=== PATIENT | male | born 1980 | race Caucasian/White ===

== ENCOUNTER 2022-01-20 20:30 | Emergency (ER) | payer SELFPAY ==
[2022-01-20 22:33] VITALS: BP 151/90; PULSE 99; RESP 18; TEMP 36.8; O2SAT 98; BMI 21.8
--- NOTE | 2022-01-20 22:41 | XRR_ITS ---
PROCEDURE INFORMATION: Exam: XR Right Wrist Exam date and time: 01/20/2022 11:11 PM Age: 41 years old Clinical indication: Injury or trauma; Fall; Laceration; Wrist; Right; Additional info: Fall injury with right wrist pain and laceration. TECHNIQUE: Imaging protocol: Radiologic exam of the Right wrist. Views: 3 or more views. COMPARISON: No relevant prior studies available. FINDINGS: Bones/joints: Normal. Soft tissues: Normal. XR/XR wrist RT min 3V* [id number] IMPRESSION: No acute findings.
[2022-01-20 23:43] VITALS: BP 155/97; PULSE 92; RESP 18; TEMP 36.8; O2SAT 98
--- NOTE | 2022-01-21 00:08 | W.ED.WOUNDLC ---
HPI - Wound/Laceration General: Chief Complaint: Wound/Laceration Stated Complaint: laceration of right wrist Time Seen by Provider: 01/20/22 23:24 History of Present Illness: Patient is a 41-year-old male comes to the ED with a laceration to right wrist. Patient says he fell and a ceramic bowl broke as well. He fell down and his right wrist hit the ground and was cut on a piece of the broken ceramic bowl. Endorses pain in his right wrist that he rates a 10 out of 10. Patient is not up-to-date on his tetanus. Associated symptoms: Denies chills, fever(s), nausea or vomiting Review of Systems Const: Denies: fever(s), chills or fatigue Eyes: Denies: change in vision or eye discomfort ENMT: Denies: throat pain, odynophagia, nasal discharge or nasal congestion Card: Denies: chest pain, palpitations, edema, swelling of feet/ankles, dyspnea on exertion or orthopnea Resp: Denies: dyspnea, productive cough or non-productive cough GI: Denies: abdominal pain, nausea, vomiting, diarrhea, constipation or hematochezia : Denies: flank pain, difficulty urinating, dysuria or hematuria Musc: Reports: extremity pain (Right wrist pain); Denies: neck pain, back pain or extremity swelling Skin/Breast: Reports: new lesions (Laceration right wrist); Denies: rash Neuro: Denies: headache(s), numbness in extremities or weakness in extremities PFS ED PFSH: Medical History No pertinent family history Surgical History No pertinent past surgical history Physical Exam Const: COMMON NORMALS: no acute distress, patient oriented x3 and alert GENERAL APPEARANCE: cooperative and comfortable HENMT: COMMON NORMALS: normocephalic HEAD & SCALP: normocephalic MOUTH: Normal oral and palatal mucosa present THROAT: posterior oropharynx normal and uvula midline Neck/C-Spine: COMMON NORMALS: supple GENERAL: Yes normal visual inspection Resp: COMMON NORMALS: normal respiratory effort, No retractions, No use of accessory muscles and clear to auscultation bilaterally AUSCULTATION: clear to auscultation bilaterally Cardio: COMMON NORMALS: regular rate, regular rhythm, S1 normal heart sound present, S2 normal heart sound present, No gallops present (Cardio), No clicks present (Cardio), No murmurs present (Cardio) and Peripheral pulses 2+ throughout RATE: regular rate RHYTHM: regular rhythm HEART SOUNDS: S1 normal heart sound present and S2 normal heart sound present PERIPHERAL PULSES: Peripheral pulses 2+ throughout GI: COMMON NORMALS: Normal to inspection, nondistended, normoactive bowel sounds present, Soft to palpation, non-tender and no masses PALPATION: Yes Soft to palpation : COMMON NORMALS: Yes no CVA tenderness BLADDER/KIDNEY EXAM: Yes no CVA tenderness Back/Pelvis: COMMON NORMALS: no CVA tenderness Extremity: NARRATIVE EXTREMITY EXAM: Dorsal aspect of right wrist?superficial linear 2 cm laceration. No active bleeding and no foreign body seen. Patient has full range of motion in wrist and fingers and hands. Wrist is tender to palpation and endorses pain with range of motion. Neurovascular tact distally. GENERAL: Yes normal exam except as noted Neuro: COMMON NORMALS: patient oriented x3 and moves all extremities SENSORIUM/ORIENTATION: Yes alert Skin: GENERAL SKIN EXAM: dry skin Procedures Laceration Laceration 1: Site: upper extremity (dorsal wrist) Side (If applicable): right Size (cm): 2 Description: linear and clean Depth: simple, single layer Local Anesthetic: lidocaine 2% Amount of anesthesia used (mL): 3 Pre-repair: irrigated extensively (Irrigated extensively normal saline and beta iodine wash.) Skin layer closed with: nylon Size (cm): 3-0 Number of sutures: 6 Technique: simple, interrupted Course Vital Signs: Vital signs: Vital Signs Temperature 98.3 F 01/20/22 23:43 Pulse Rate 89 01/21/22 02:00 Respiratory Rate 16 01/21/22 02:00 Blood Pressure 152/78 01/21/22 02:00 Pulse Oximetry 98 01/21/22 02:00 MDM - Wound/Laceration Medical Decision Making Patient is a 41-year-old male comes to the ED with right wrist pain and wrist laceration after he fell and broke and ceramic bowl because laceration during fall. Patient has a 2 cm linear laceration on dorsal aspect of right wrist. He has some right wrist tenderness palpation and some pain with range of motion. Neurovascular tact and no concern for any tendon lacerations. Patient was given updated tetanus here in the ED. Lidocaine 2% was used as local and laceration site was irrigated extensively normal saline and beta iodine wash. 6 sutures were then placed to close up laceration (see procedure notes for details). X-ray of right wrist showed no acute fractures or findings. Patient diagnosed with laceration of wrist and acute wrist pain. Patient was discharged home and Velcro wrist splint and on a prophylactic prescription for cephalexin. He was told to follow-up with his PCP in the next 7 to 10 days for reevaluation of sutures removed. He was instructed on how to care for laceration site. Lab Data Radiology Impressions Wrist X-Ray 01/20/22 22:41 IMPRESSION: No acute findings. Discharge Plan Discharge Patient Disposition: Home Clinical Impression: Laceration of wrist without complication Qualifiers: Encounter type: initial encounter Laterality: right Qualified Code(s): S61.511A - Laceration without foreign body of right wrist, initial encounter Wrist pain, acute Qualifiers: Laterality: right Qualified Code(s): M25.531 - Pain in right wrist Condition: Stable Prescriptions: New cephalexin 500 mg capsule 500 mg PO Q6H 4 Days Qty: 16 0RF Discharge Orders: Discharge ED (Routine); Ordered 01/21/22 Ordered By: Sai Andrade Referrals: Juliet Hart APN [Primary Care Provider] - Discharge Diet: Regular Discharge Activity: Increase activity as tolerated Patient Instructions: Wrist Injury (ED), Laceration (DC), Opioid Safety Activity Restrictions/Additional Instructions: Take full course of antibiotics as prescribed. Keep laceration site clean and dry for the next 24 hours. clean with soap and waterand re-bandage daily. You can apply triple antibiotic ointment on laceration daily to help with healing. Watch for signs of infection such as redness, warmth, increased tenderness and puslike drainage. If you see the signs of infection return to the ED, urgent care or PCP for reevaluation. call your PCP to schedule a follow-up appointment for reevaluation and suture removal in about 10 days. Continue taking all home meds. Follow discharge plans as discussed. You can return to the ED if symptoms worsen. Coding Level of Care Code ED Microstrategy Architect for Jennifer Watson Exam Comprehensive
[2022-01-21 00:27] VITALS: RESP 16
[2022-01-21] MEDS: morphine 4 mg/mL SDV 1 mL IM (00:27)
[2022-01-21] MEDS: tetanus-dipt-pertussis 0.5 mL SDV IM (00:27)
[2022-01-21] MEDS: HYDROcodone-acetaminophen 7.5-325 mg Tablet 1 TAB PO ×2 (01:58)
[2022-01-21] MEDS: cephALEXin 500 mg Capsule PO (01:58)
[2022-01-21 02:00] VITALS: BP 152/78; PULSE 89; RESP 16; O2SAT 98
[2022-01-21] MEDS: neomycin-poly-bacitracin oint 0.9 gm Pkt 1 APPLIC TOPICAL (02:03)
== END 2022-01-21 02:02 | disposition home or self-care (01) ==
PROVIDERS: Emergency Provider Physician Assistant; PCP Nurse Practitioner Family
DX: S61.511A Laceration without foreign body of right wrist, initial encounter (principal); M25.531 Pain in right wrist; W01.110A Fall on same level from slipping, tripping and stumbling with subsequent striking against sharp glass, initial encounter; Z23 Encounter for immunization
CPT/HCPCS: 12001; 73110; 90471; 90715; 96372; 99284; J2270

== ENCOUNTER 2022-03-14 14:26 | Emergency (ER) | payer SELFPAY ==
[2022-03-14 14:33] VITALS: BP 160/102; PULSE 88; RESP 18; TEMP 36.6; O2SAT 99; BMI 21.1
--- NOTE | 2022-03-14 14:53 | ED_ITS ---
HPI - General Adult General: Chief complaint: Alcohol Stated complaint: NAUSEA Time Seen by Provider: 03/14/22 14:49 History of Present Illness: Patient is a 41-year-old male with history chronic alcohol dependence presenting to the emergency room with concerns of acute abdominal pain could not diarrhea after drinking alcohol today. Patient tells me that he was upset with his girlfriend and drained 1 bottle of rum from 11 to 2 PM. Since then, patient has had abdominal pain and diarrhea. Patient tells me he wants to quit alcohol. Patient tells me last drink prior to this was 3 days ago. Patient is trying to quit alcohol currently. Patient denies any suicidal ideation or homicidal ideation. Patient is AAOx3, answering all questions appropriately. Patient denies any melena/hematochezia. Denies any cough, runny nose, or sore throat. Onset:11am Duration:ongoing Location:home Severity:mild Associated symptoms: Deny chest pain, dyspnea, nausea, rash, palpitations or vomiting Review of Systems Const: Denies: fever(s) or chills Eyes: Denies: change in vision ENMT: Denies: mouth pain Card: Denies: chest pain or palpitations Resp: Denies: dyspnea or non-productive cough GI: Reports: abdominal pain (+midepigastric abd pain) and diarrhea; Denies: nausea or vomiting : Denies: dysuria Musc: Denies: extremity pain Skin/Breast: Denies: rash or new lesions Neuro: Denies: weakness in extremities Psych: Reports: other (Normal mood) Nikita/Lymph: Denies: easy bruising PFS ED PFSH: Medical History Alcohol dependence No pertinent family history Surgical History No pertinent past surgical history Social History Smoking and tobacco status: former smoker Alcohol intake: current Substance/Drug Use: never Physical Exam Const: COMMON NORMALS: alert HENMT: COMMON NORMALS: atraumatic HEAD & SCALP: atraumatic MOUTH: moist mucous membranes not abnormal Eye: COMMON NORMALS: EOMs intact bilaterally and conjunctivae normal CON JUNCTIVA: Yes conjunctivae normal Neck/C-Spine: COMMON NORMALS: full ROM and supple Resp: COMMON NORMALS: normal respiratory effort and clear to auscultation bilaterally AUSCULTATION: clear to auscultation bilaterally Cardio: COMMON NORMALS: regular rate RATE: regular rate GI: COMMON NORMALS: Soft to palpation and non-tender PALPATION: Yes Soft to palpation OTHER: No focal TTP. NO guarding rebound, guarding, rigidity. No CVA tenderness to percussion. Neg Dodson/Neg McBurney's point tenderness, no suprabupic tenderness to palpation. Extremity: COMMON NORMALS: full ROM Neuro: SENSORIUM/ORIENTATION: Yes alert MOTOR EXAM: No Abnormal motor strength present and Other motor observations present (no focal motor deficits) Psych: COMMON NORMALS: speech normal SPEECH: Yes normal speech MOOD & AFFECT: Yes euthymic mood Course Vital Signs: Vital signs: Vital Signs Temperature 97.9 F 03/14/22 14:33 Pulse Rate 89 03/14/22 16:30 Respiratory Rate 16 03/14/22 17:00 Blood Pressure 147/107 03/14/22 17:00 Pulse Oximetry 97 03/14/22 17:00 Oxygen Delivery Me thod 03/14/22 15:38 MDM - General Adult Medical Decision Making 41-year-old male with history alcohol dependence presenting to the emergency room after drinking alcohol with concerns of midepigastric Charlie pain and diarrhea. On exam, patient is hemodynamically stable. He has no guarding or rebound tenderness. On lab work-up, patient is has unremarkable labs. Patient is able to tolerate p.o. in the emergency room. Patient received 1 L fluid reports feeling symptomatically proved. Patient continues to be AOx3 maintaining without any issues. Present time, given, no focal findings of abdominal tenderness, fever or leukocytosis, do not suspect any acute intra-abdominal pathologies including SBO, biliary pathology, appendicitis, diverticulitis, or other emergent condition requiring surgery. In addition, patient has no appropriate risk factor for ACS at this time. Do not suspect this is ACS or unstable angina. Rx tylenol PRN abd pain, maalox/pepcid PRN dyspepsia, and zofran PRN nausea/vomiting Disposition: Discharge. Patient counseled regarding diagnostic impression, treatment plan. Patient given ED strict return precautions to return for co ntinuation, worsening, or development of new symptoms. Instructed to f/u w/ PCP regarding symptoms today. Patient verbalized understanding. Lab Data : 03/14/22 15:12 03/14/22 15:12 Laboratory Results WBC 5.7 10^3/uL (4.0-10.0) 03/14/22 15:12 RBC 4.82 10^6/uL (4.1-5.3) 03/14/22 15:12 Hgb 14.8 g/dL (11.7-16.6) 03/14/22 15:12 Hct 44.2 % (42.0-52.0) 03/14/22 15:12 MCV 91.7 fl (80-94) 03/14/22 15:12 MCH 30.7 pg (28.0-34.0) 03/14/22 15:12 MCHC 33.5 g/dL (30.0-36.0) 03/14/22 15:12 RDW 12.9 % (12.1-15.1) 03/14/22 15:12 Plt Count 211 10^3/cmm (130-400) 03/14/22 15:12 MPV 10.7 fL (7.4-10.4) H 03/14/22 15:12 Neut % (Auto) 84.1 % 03/14/22 15:12 Lymph % (Auto) 9.5 % 03/14/22 15:12 [place] % (Auto) 5.4 % 03/14/22 15:12 Eos % (Auto) 0.2 % 03/14/22 15:12 Baso % (Auto) 0.4 % 03/14/22 15:12 Neut # (Auto) 4.81 10^3/uL (1.8-7.7) 03/14/22 15:12 Lymph # (Auto) 0.5 10^3/uL (0.8-4.8) L 03/14/22 15:12 [place] # (Auto) 0.3 10^3/uL (0.2-0.9) 03/14/22 15:12 Eos # (Auto) 0.0 10^3/uL (0.0-0.8) 03/14/22 15:12 Baso # (Auto) 0.0 10^3/uL (0.0-0.1) 03/14/22 15:12 Nucleated RBC % (auto) 0 % 03/14/22 15:12 Nucleated RBCs # 0.0 /100WBC 03/14/22 15:12 Sodium 140 mmol/L (136-145) 03/14/22 15:12 Potassium 4.5 mmol/L (3.5-5.1) 03/14/22 15:12 Chloride 105 mmol/L (98-107) 03/14/22 15:12 Carbon Dioxide 26 mmol/L (22-29) 03/14/22 15:12 Anion Gap 13.5 (5-19) 03/14/22 15:12 BUN 6 mg/dL (6-20) 03/14/22 15:12 Creatinine 0.8 mg/dL (0.7-1.2) 03/14/22 15:12 GFR Calculation 107.6 mL/min (90-130) 03/14/22 15:12 Glucose 102 mg/dL (65-115) 03/14/22 15:12 Calculated Osmolality 288 mOsm/kg (285-295) 03/14/22 15:12 Calcium 8.1 mg/dL (8.5-10.5) L 03/14/22 15:12 Total Bilirubin 0.3 mg/dL (0.15-1.2) 03/14/22 15:12 AST 14 U/L (0-40) 03/14/22 15:12 ALT 35 U/L (0-41) 03/14/22 15:12 Alkaline Phosphatase 81 U/L (40-130) 03/14/22 15:12 Total Protein 6.3 g/dL (6.6-8.7) L 03/14/22 15:12 Albumin 3.9 g/dL (3.5-5.2) 03/14/22 15:12 Globulin 2.4 g/dL (1.3-4.6) 03/14/22 15:12 Lipase 29 U/L (13-60) 03/14/22 15:12 Urine Color Yellow (Yellow) 03/14/22 15:07 Urine Appearance Clear (CLEAR) 03/14/22 15:07 Urine pH 7 (5-7) 03/14/22 15:07 Ur Specific [place] 1.010 (1.005-1.030) 03/14/22 15:07 Urine Protein Neg (Negative) 03/14/22 15:07 Urine Glucose (UA) Norm (Normal) 03/14/22 15:07 Urine Ketones Negative (Negative) 03/14/22 15:07 Urine Blood Neg (Negative) 03/14/22 15:07 Urine Nitrate Negative (Negative) 03/14/22 15:07 Urine Bilirubin Neg (Negative) 03/14/22 15:07 Urine Urobilinogen Norm mg/dL (Negative) 03/14/22 15:07 Ur Leukocyte Esterase Negative (Negative) 03/14/22 15:07 Discharge Plan Discharge Patient Disposition: Home Clinical Impression: Abdominal pain, Alcohol dependence Condition: Stable Prescriptions: New amlodipine 5 mg tablet 5 mg PO DAILY 30 Days Qty: 30 0RF No Action Tylenol Ex Str Rapid Release 500 mg Tablet 1,000 mg PO Q6H PRN (Reason: Pain) Benadryl Allergy 25 mg Tablet 25 mg PO TID PRN (Reason: Itching) Discharge Orders: Discharge ED (Routine); Ordered 03/14/22 Ordered By: Sofia Florez Referrals: Juliet Hart APN [Primary Care Provider] - Discharge Diet: Advance as tolerated Discharge Activity: Increase activity as tolerated Patient Instructions: Abdominal Pain (ED) Activity Restrictions/Additional Instructions: Please come back if you have any worsening abdominal pain, fever or chills, nausea or vomiting, diarrhea, blood in the stool, inability hold down liquid or solids, or any new concerning complaints. You need to follow-up with your primary care provider for further adjustment of your blood pressure. Your blood pressure puts you at risk for developing strokes and heart attack. Therefore it is very important for you to follow-up with this number to see if the numbers improve gradually. Because blood pressure adjustment is a gradual process, were not able to change it in 1 visit. Therefore please log your blood pressure and follow-up with your primary care provider in the next 72 hours for further adjustment of your blood pressures. Coding Level of Care Code ED Motor And Generator Assembler for Jennifer Fwd Exam Comprehensive
[2022-03-14 15:21] LABS: Add Urine Microscopic? NO; Charge for UA Resulting for Rev
[2022-03-14 15:25] LABS: Bilirubin Urine Neg (Negative); Blood Urine Neg (Negative); Glucose Urine UA Norm (Normal); Ketones Urine Negative (Negative); Leukocyte Esterase Urine Negative (Negative); Nitrate Urine Negative (Negative); Protein Urine Neg (Negative); Urine Appearance Clear (CLEAR); Urine Color Yellow (Yellow); Urobilinogen Urine Norm (Negative); pH Urine 7 (5-7)
[2022-03-14 15:26] LABS: Basophils % 0.4 %; Eosinophils % 0.2 %; Hematocrit 44.2 % (42.0-52.0); Hemoglobin 14.8 g/dL (11.7-16.6); Lymphocytes # 0.5 10^3/uL (0.8-4.8); Lymphocytes % 9.5 %; Mean Corpuscular HGB Conc 33.5 g/dL (30.0-36.0); Mean Corpuscular Hemoglobin 30.7 pg (28.0-34.0); Mean Corpuscular Volume 91.7 fl (80-94); Mean Platelet Volume 10.7 fL (7.4-10.4); Monocytes # 0.3 10^3/uL (0.2-0.9); Monocytes % 5.4 %; Neutrophils # 4.81 10^3/uL (1.8-7.7); Neutrophils % 84.1 %; Nucleated Red Blood Cells % 0 %; Platelet Count 211 10^3/cmm (130-400); Red Blood Count 4.82 10^6/uL (4.1-5.3); Red Cell Distribution Width 12.9 % (12.1-15.1); White Blood Count 5.7 10^3/uL (4.0-10.0)
[2022-03-14] MEDS: sodium chloride 0.9% 1,000 ML 999 ML IV (15:29)
[2022-03-14 15:38] VITALS: BP 154/102; PULSE 88; O2SAT 93
[2022-03-14 15:51] LABS: Alanine Aminotransferase 35 U/L (0-41); Albumin Level 3.9 g/dL (3.5-5.2); Alkaline Phosphatase 81 U/L (40-130); Anion Gap 13.5 (5-19); Aspartate Amino Transferase 14 U/L (0-40); Blood Urea Nitrogen 6 mg/dL (6-20); Calcium 8.1 mg/dL (8.5-10.5); Carbon Dioxide 26 mmol/L (22-29); Chloride 105 mmol/L (98-107); Globulin 2.4 g/dL (1.3-4.6); Glomerular Filtration Rate 107.6 mL/min (90-130); Glucose 102 mg/dL (65-115); Lipase 29 U/L (13-60); Osmolality Calculated 288 mOsm/kg (285-295); Potassium 4.5 mmol/L (3.5-5.1); Sodium 140 mmol/L (136-145); Total Bilirubin 0.3 mg/dL (0.15-1.2); Total Protein 6.3 g/dL (6.6-8.7)
[2022-03-14 16:00] VITALS: BP 144/93; PULSE 71; O2SAT 96
[2022-03-14 16:30] VITALS: PULSE 89; O2SAT 100
--- NOTE | 2022-03-14 16:59 | PC.NURSE ---
pt resting in bed, given saltine crackers, sprite, and juice
[2022-03-14 17:00] VITALS: BP 147/107; RESP 16; O2SAT 97
== END 2022-03-14 17:27 | disposition home or self-care (01) ==
PROVIDERS: Emergency Provider Emergency Medicine; PCP Nurse Practitioner Family
DX: R10.9 Unspecified abdominal pain (principal); F10.20 Alcohol dependence, uncomplicated; Z87.891 Personal history of nicotine dependence
CPT/HCPCS: 36415; 80053; 81003; 83690; 85025; 99283; J7030

== ENCOUNTER 2022-05-24 19:01 | Emergency (ER) | payer SELFPAY ==
[2022-05-24 19:21] VITALS: BP 160/86; PULSE 99; RESP 15; TEMP 36.8; O2SAT 98; BMI 19.8
--- NOTE | 2022-05-24 20:34 | ED_ITS ---
HPI - Chest Pain General: Chief Complaint: Chest Pain Stated Complaint: Chest pain Time Seen by Provider: 05/24/22 20:34 History of Present Illness: Mr. Justice is a 41-year-old gentleman presenting to the emergency department due to left chest pain. Started with heavy exertion and has now been intermittent with sharp feeling and feeling like his rib is popping. Worse with movement and palpation. Moderate in intensity. Course has persisted. No other specific changes in health, exacerbating, or alleviating factors identified. Onset (ago): day(s) Timing of current episode: episodic Prior episodes: No Onset: during exertion Pain location: left chest Pain radiation: none Associated symptoms: Reports no associated symptoms Review of Systems General: Reports: 10 or more systems reviewed and unremarkable except in HPI and below PFSH ED PFSH: Medical History Alcohol dependence No pertinent family history Surgical History No pertinent past surgical history Social History Smoking and tobacco status: former smoker Alcohol intake: current Physical Exam Const: COMMON NORMALS: alert GENERAL APPEARANCE: cooperative and well developed HENMT: COMMON NORMALS: normocephalic and atraumatic HEAD & SCALP: normocephalic and atraumatic THROAT: posterior oropharynx normal Eye: COMMON NORMALS: conjunctivae normal CONJUNCTIVA: Yes conjunctivae normal SCLERA: sclerae normal Neck/C-Spine: COMMON NORMALS: supple GENERAL: Yes trachea midline Chest: OTHER: Left anterior medial point tenderness palpation without overlying skin lesions or obvious contour abnormality. Resp: COMMON NORMALS: normal respiratory effort and clear to auscultation bilaterally EFFORT & INSPECTION: Yes able to speak in complete sentences A USCULTATION: clear to auscultation bilaterally Cardio: COMMON NORMALS: regular rate and regular rhythm RATE: regular rate RHYTHM: regular rhythm GI: COMMON NORMALS: Soft to palpation PALPATION: Yes Soft to palpation and No Tenderness to palpation present (GI) Extremity: GENERAL: Yes normal exam except as noted and No edema Neuro: COMMON NORMALS: moves all extremities SENSORIUM/ORIENTATION: Yes alert and No Orientation impaired Psych: COMMON NORMALS: mental status grossly normal and Normal thought process present MOOD & AFFECT: Yes anxious THOUGHT PROCESS: Normal thought process present Course Vital Signs: Vital signs: Vital Signs Temperature 98.3 F 05/24/22 19:21 Pulse Rate 97 05/24/22 22:49 Respiratory Rate 19 H 05/24/22 22:49 Blood Pressure 150/98 05/24/22 22:49 Pulse Oximetry 97 05/24/22 22:49 Oxygen Delivery Me thod 05/24/22 19:21 MDM - Chest Pain Medical Decision Making 41-year-old gentleman presenting with reproducible chest pain on exam. Patient is low risk by heart score. EKG notable for sinus rhythm. Hematologic and metabolic panel essentially unremarkable. Initial troponin was greater than 6 hours of symptoms is negative. Most likely etiology of pain is associated chest wall pain with possible transient dislocation of rib. The results of ED evaluation were discussed with the patient including prescriptions and/or symptomatic cares (if applicable) including appropriate and responsible use, followup plan, and return precautions. The patient verbalized understanding and felt safe for discharge. Medical Records I reviewed the patient's medical records. Lab Data I reviewed the patient's lab results. : 05/24/22 20:51 05/24/22 20:51 Radiology Impressions Chest X-Ray 05/24/22 20:57 IMPRESSION: No acute findings. Laboratory Results WBC 8.1 10^3/uL (4.0-10.0) 05/24/22 20:51 RBC 4.65 10^6/uL (4.1-5.3) 05/24/22 20:51 Hgb 14.3 g/dL (11.7-16.6) 05/24/22 20:51 Hct 41.1 % (42.0-52.0) L 05/24/22 20:51 MCV 88.4 fl (80-94) 05/24/22 20:51 MCH 30.8 pg (28.0-34.0) 05/24/22 20:51 MCHC 34.8 g/dL (30.0-36.0) 05/24/22 20:51 RDW 12.3 % (12.1-15.1) 05/24/22 20:51 Plt Count 205 10^3/cmm (130-400) 05/24/22 20:51 MPV 11.2 fL (7.4-10.4) H 05/24/22 20:51 Neut % (Auto) 66.8 % 05/24/22 20:51 Lymph % (Auto) 20.0 % 05/24/22 20:51 [place] % (Auto) 9.0 % 05/24/22 20:51 Eos % (Auto) 3.6 % 05/24/22 20:51 Baso % (Auto) 0.4 % 05/24/22 20:51 Neut # (Auto) 5.40 10^3/uL (1.8-7.7) 05/24/22 20:51 Lymph # (Auto) 1.6 10^3/uL (0.8-4.8) 05/24/22 20:51 [place] # (Auto) 0.7 10^3/uL (0.2-0.9) 05/24/22 20:51 Eos # (Auto) 0.3 10^3/uL (0.0-0.8) 05/24/22 20:51 Baso # (Auto) 0.0 10^3/uL (0.0-0.1) 05/24/22 20:51 Nucleated RBC % (auto) 0 % 05/24/22 20:51 Nucleated RBCs # 0.0 /100WBC 05/24/22 20:51 Sodium 138 mmol/L (136-145) 05/24/22 20:51 Potassium 3.9 mmol/L (3.5-5.1) 05/24/22 20:51 Chloride 100 mmol/L (98-107) 05/24/22 20:51 Carbon Dioxide 27 mmol/L (22-29) 05/24/22 20:51 Anion Gap 14.9 (5-19) 05/24/22 20:51 BUN 10 mg/dL (6-20) 05/24/22 20:51 Creatinine 1.1 mg/dL (0.7-1.2) 05/24/22 20:51 GFR Calculation 74.5 mL/min (90-130) L 05/24/22 20:51 Glucose 89 mg/dL (65-115) 05/24/22 20:51 Calculated Osmolality 285 mOsm/kg (285-295) 05/24/22 20:51 Calcium 9.3 mg/dL (8.5-10.5) 05/24/22 20:51 Total Bilirubin 0.3 mg/dL (0.15-1.2) 05/24/22 20:51 AST 16 U/L (0-40) 05/24/22 20:51 ALT 20 U/L (0-41) 05/24/22 20:51 Alkaline Phosphatase 85 U/L (40-130) 05/24/22 20:51 Troponin T Baseline 6 ng/L (0-15) 05/24/22 20:51 Total Protein 6.8 g/dL (6.6-8.7) 05/24/22 20:51 Albumin 4.3 g/dL (3.5-5.2) 05/24/22 20:51 Globulin 2.5 g/dL (1.3-4.6) 05/24/22 20:51 Lipase 51 U/L (13-60) 05/24/22 20:51 Discharge Plan Discharge Patient Disposition: Home Clinical Impression: Chest pain, Musculoskeletal chest pain Condition: Stable Prescriptions: New lisinopril 10 mg tablet 10 mg PO DAILY Qty: 30 1RF No Action Tylenol Ex Str Rapid Release 500 mg Tablet 1,000 mg PO Q6H PRN (Reason: Pain) Benadryl Allergy 25 mg Tablet 25 mg PO TID PRN (Reason: Itching) Discharge Orders: Discharge ED (Routine); Ordered 05/24/22 Ordered By: Serjio Simon Referrals: Juliet Hart APN [Primary Care Provider] - Discharge Diet: Usual diet Discharge Activity: Increase activity as tolerated Patient Instructions: Chest Wall Pain (ED), Pain Management Activity Restrictions/Additional Instructions: Thank you for visiting the emergency department. You were seen and evaluated for chest pain. The most likely cause of your pain is chest wall pain possibly related to transiently dislocated rib. The treatment for this is supportive and symptoms should improve within the next week or 2. Please follow-up with a primary care provider. Return to the emergency department for uncontrolled symptoms or anything else that you are concerned about a feel needs emergency department evaluation. Coding Level of Care Code ED Senior Wind Turbine Technician for Jennifer Watson
--- NOTE | 2022-05-24 20:47 | ECG_ITS ---
[facility] Test Date: 2022-05-24 Pat Name: Sai Justice Department: Room: Gender: Male Inventory Auditor: : 1980 Requested By: Serjio Simon Order Number: [id number] Alcocer MD: Autumn Morris M.D. Measurements Intervals [place] Rate: 90 P: 57 MA: 117 QRS: -54 QRSD: 111 T: 54 QT: 350 QTc: 430 Interpretive Statements SINUS RHYTHM WITH SHORT MA INTERVAL LEFT ANTERIOR FASCICULAR BLOCK [QRS AXIS <= -45, QR IN I, RS IN II] Compared to ECG 11/09/2018 15:50:11 Short MA interval now present Sinus tachycardia no longer present Electronically Signed On 05-24-2022 21:37:11 CDT by Autumn Morris M.D. [email or web address]
--- NOTE | 2022-05-24 20:57 | XRR_ITS ---
PROCEDURE INFORMATION: Exam: XR Chest Exam date and time: 05/24/2022 9:22 PM Age: 41 years old Clinical indication: Chest wall pain; Additional info: L ant chest pain TECHNIQUE: Imaging protocol: Radiologic exam of the chest. Views: 2 views. COMPARISON: CR XR chest 2V* [id number] 02/03/2019 8:29 AM FINDINGS: Lungs: Unremarkable. No consolidation. Pleural spaces: Unremarkable. No pleural effusion. No pneumothorax. Heart/Mediastinum: Unremarkable. No cardiomegaly. Bones/joints: Unremarkable. XR/XR chest 2V* [id number] IMPRESSION: No acute findings.
[2022-05-24 21:12] LABS: Basophils % 0.4 %; Eosinophils # 0.3 10^3/uL (0.0-0.8); Eosinophils % 3.6 %; Hematocrit 41.1 % (42.0-52.0); Hemoglobin 14.3 g/dL (11.7-16.6); Lymphocytes # 1.6 10^3/uL (0.8-4.8); Mean Corpuscular HGB Conc 34.8 g/dL (30.0-36.0); Mean Corpuscular Hemoglobin 30.8 pg (28.0-34.0); Mean Corpuscular Volume 88.4 fl (80-94); Mean Platelet Volume 11.2 fL (7.4-10.4); Monocytes # 0.7 10^3/uL (0.2-0.9); Neutrophils % 66.8 %; Nucleated Red Blood Cells % 0 %; Platelet Count 205 10^3/cmm (130-400); Red Blood Count 4.65 10^6/uL (4.1-5.3); Red Cell Distribution Width 12.3 % (12.1-15.1); White Blood Count 8.1 10^3/uL (4.0-10.0)
[2022-05-24 21:23] LABS: Troponin(5th) Baseline 6 ng/L (0-15)
[2022-05-24 21:24] LABS: Alanine Aminotransferase 20 U/L (0-41); Albumin Level 4.3 g/dL (3.5-5.2); Alkaline Phosphatase 85 U/L (40-130); Anion Gap 14.9 (5-19); Aspartate Amino Transferase 16 U/L (0-40); Blood Urea Nitrogen 10 mg/dL (6-20); Calcium 9.3 mg/dL (8.5-10.5); Carbon Dioxide 27 mmol/L (22-29); Chloride 100 mmol/L (98-107); Globulin 2.5 g/dL (1.3-4.6); Glomerular Filtration Rate 74.5 mL/min (90-130); Glucose 89 mg/dL (65-115); Lipase 51 U/L (13-60); Osmolality Calculated 285 mOsm/kg (285-295); Potassium 3.9 mmol/L (3.5-5.1); Sodium 138 mmol/L (136-145); Total Bilirubin 0.3 mg/dL (0.15-1.2); Total Protein 6.8 g/dL (6.6-8.7)
[2022-05-24 21:27] VITALS: BP 163/99; PULSE 97; RESP 20; O2SAT 99
[2022-05-24 21:57] VITALS: BP 162/92; PULSE 119; RESP 20; O2SAT 97
[2022-05-24 22:29] VITALS: RESP 19
[2022-05-24] MEDS: oxyCODONE 5 mg IR Tab/Cap PO (22:29)
[2022-05-24 22:42] VITALS: BP 150/98; PULSE 97; RESP 19; O2SAT 97
[2022-05-24 22:49] VITALS: BP 150/98; PULSE 97; RESP 19; O2SAT 97
== END 2022-05-24 22:51 | disposition home or self-care (01) ==
PROVIDERS: Emergency Provider Emergency Medicine; PCP Nurse Practitioner Family
DX: R07.89 Other chest pain (principal)
CPT/HCPCS: 71046; 80053; 83690; 84484; 85025; 93005; 99285

== ENCOUNTER 2025-04-29 15:28 | Emergency (ER) | payer SELFPAY ==
[2025-04-29 15:39] VITALS: BP 151/92; PULSE 67; RESP 18; TEMP 36.9; O2SAT 100
--- NOTE | 2025-04-29 15:46 | CTR_ITS ---
PROCEDURE INFORMATION: Exam: CT Abdomen And Pelvis With Contrast Exam date and time: 04/29/2025 4:22 PM Age: 44 years old Clinical indication: Abdominal pain; Prior surgery; Surgery date: 6+ months; Surgery type: Appy, hernia; Additional info: Abd pain TECHNIQUE: Imaging protocol: Computed tomography of the abdomen and pelvis with contrast. Radiation optimization: All CT scans at this facility use at least one of these dose optimization techniques: automated exposure control; mA and/or kV adjustment per patient size (includes targeted exams where dose is matched to clinical indication); or iterative reconstruction. Contrast material: OMNI 350; Contrast volume: 100 ml; Contrast route: INTRAVENOUS (IV); COMPARISON: CT abdomen pelvis w con* [id number] 08/09/2018 4:43 PM RADIATION DOSE METRICS: Total DLP (mGy-cm): 378.8 FINDINGS: Lungs: Lung bases are clear. No pleural effusion. Liver: Normal. No mass. Gallbladder and biliary ducts: Normal. No calcified stones. No ductal dilation. Pancreas: Normal. No ductal dilation. Spleen: Normal. No splenomegaly. Adrenal glands: Normal. No mass. Kidneys and ureters: Normal. No hydronephrosis. Stomach and bowel: Unremarkable. No obstruction. No mucosal thickening. Appendix: The appendix has been resected. Intraperitoneal space: Unremarkable. No free air. No significant fluid collection. Vasculature: Unremarkable. No abdominal aortic aneurysm. Lymph nodes: Unremarkable. No enlarged lymph nodes. Urinary bladder: Unremarkable as visualized. Reproductive: Unremarkable as visualized. Bones/joints: Unremarkable. No acute fracture. Soft tissues: Unremarkable. CT/CT abdomen pelvis w con* [id number] IMPRESSION: No acute findings.
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
[2025-04-29] MEDS: HYDROmorphone 0.5 MG/0.5 ML INJ 1 MG IVP (15:58)
[2025-04-29] MEDS: ondansetron 2 mg/ML SDV 2 mL 4 MG IVP (15:58)
[2025-04-29 16:04] VITALS: BP 161/97; O2SAT 96
[2025-04-29 16:06] LABS: Hematocrit 46.7 % (37-53); Hemoglobin 15.80 g/dL (11.27-16.99); Mean Corpuscular HGB Conc 33.8 g/dL (30-55); Mean Corpuscular Hemoglobin 30.1 pg (27-33); Mean Corpuscular Volume 89.0 fl (82-101); Nucleated Red Blood Cells % 0 %; Platelet Count 191 10^3/cmm (157-399); Red Blood Count 5.25 10^6/uL (3.85-5.65); White Blood Count 8.92 10^3/uL (3.29-11.43)
[2025-04-29 16:23] LABS: Alanine Aminotransferase 18 U/L (0-41); Albumin Level 4.6 g/dL (3.5-5.2); Alkaline Phosphatase 87 U/L (40-130); Aspartate Amino Transferase 16 U/L (0-40); Blood Urea Nitrogen 9 mg/dL (6-20); Calcium 9.7 mg/dL (8.5-10.5); Carbon Dioxide 23 mmol/L (22-29); Chloride 103 mmol/L (98-107); Creatinine Clr Calc Pharmacy 92.9956; Globulin 3.0 g/dL (1.3-4.6); Glucose 110 mg/dL (65-115); Lipase 25 U/L (13-60); Osmolality Calculated 293 mOsm/kg (285-295); Sodium 142 mmol/L (136-145); Total Protein 7.6 g/dL (6.6-8.7)
[2025-04-29] MEDS: iohexol 350 mg/mL 500 mL Btl (per mL) IV (16:24)
[2025-04-29 16:26] LABS: Anion Gap 20.5 (5-19); Potassium 4.5 mmol/L (3.5-5.1)
[2025-04-29 16:49] VITALS: BP 125/80; O2SAT 97
--- NOTE | 2025-04-29 16:50 | ECG_ITS ---
[facility] Date: 2025-04-29 Pat Name: [employer]: Room: Gender: Male Private Duty Nurse: : 1980 Requested By: Janel Walker Order Number: [id number] Alcocer MD: Jenni Puga M.D. Measurements Intervals Concrete Rate: 68 P: 64 TX: 118 QRS: -46 QRSD: 106 T: 67 QT: 389 QTc: 416 Interpretive Statements SINUS RHYTHM WITH SHORT TX INTERVAL LEFT AXIS DEVIATION [QRS AXIS < -30] Compared to ECG 05/24/2022 20:47:43 Left-axis deviation now present Left anterior fascicular block no longer present Electronically Signed On 04-30-2025 14:33:50 CDT by Jenni Puga M.D. [id number]
[2025-04-29] MEDS: LORazepam 1 MG/0.5 ML injection IVP (17:02)
[2025-04-29 17:04] VITALS: BP 126/71; O2SAT 97
[2025-04-29] MEDS: HYDROcodone-acetaminophen 5-325 mg Tablet 1 TAB PO (17:08)
[2025-04-29 17:14] VITALS: BP 126/71; PULSE 88; RESP 17; O2SAT 98
--- NOTE | 2025-05-02 07:30 | DCPLANNER ---
messaged gen surg for er f/u
== END 2025-04-29 17:15 | disposition home or self-care (01) ==
PROVIDERS: Emergency Provider Emergency Medicine; PCP Nurse Practitioner Family
DX: R10.9 Unspecified abdominal pain (principal); Z87.891 Personal history of nicotine dependence
CPT/HCPCS: 74177; 80053; 83690; 85025; 93005; 96374; 96375; 99285; J1171; J2060; J2405; J7030; J9999

== ENCOUNTER 2025-05-24 12:17 | Emergency (ER) | payer SELFPAY ==
[2025-05-24 12:24] VITALS: BP 146/93; PULSE 71; RESP 18; TEMP 36.3; O2SAT 99
--- NOTE | 2025-05-24 13:03 | W.ED.ABDPA2 ---
HPI - Abdominal Pain General: Chief Complaint: Abdominal Pain Stated Complaint: stomach pain, n/v/d, sweats, chills Time Seen by Provider: 05/24/25 12:48 History of Present Illness: 44-year-old man with a history of chronic abdominal pain, diverticulitis and ulcers who presents emergency room with abdominal pain. Has plans for general surgery consultation tomorrow in clinic. However he said the pain became much worse today. He was seen recently and sent home with some hydrocodone. He had a CT of the abdomen at that time that was negative. No nausea vomiting today. No chest pain. No dysuria. Related Data Home Medications ?Medication ?Instructions ?Recorded ?Confirmed acetaminophen 500 mg tablet 1,000 mg PO Q6H PRN Pain 03/14/22 05/24/25 diphenhydramine HCl 25 mg tablet 25 mg PO TID PRN Itching 03/14/22 05/24/25 (Benadryl Allergy) simethicone 80 mg chewable tablet 160 mg PO DAILY PRN 04/29/25 05/24/25 Gastrointestinal Spasms Or Cramping Previous Rx's ?Medication ?Instructions ?Recorded dicyclomine 20 mg tablet 20 mg PO TID PRN abdominal pain 04/29/25 #20 tabs hydrocodone 5 mg-acetaminophen 325 1 tab PO Q6H PRN pain #14 tabs 04/29/25 mg tablet ondansetron 4 mg disintegrating 4 mg PO Q6H PRN nausea and 04/29/25 tablet vomiting #14 tabs pantoprazole 40 mg tablet,delayed 40 mg PO DAILY #60 tabs 04/29/25 release (Protonix) tramadol 50 mg tablet 50 mg PO Q8H PRN pain #10 tabs 05/24/25 Allergies Allergy/AdvReac Type Severity Reaction Status Date / Time erythromycin base Allergy Unknown Verified 01/20/22 22:39 Penicillins Allergy Unknown Verified 05/24/25 12:26 Review of Systems Narrative: Constitutional symptoms: Negative except as documented in HPI. Skin symptoms: Negative except as documented in HPI. Eye symptoms: Negative except as documented in HPI. ENMT symptoms: Negative except as documented in HPI. Respiratory symptoms: Negative except as documented in HPI. Cardiovascular symptoms: Negative except as documented in HPI. Gastrointestinal symptoms: Negative except as documented in HPI. Genitourinary symptoms: Negative except as documented in HPI. Musculoskeletal symptoms: Negative except as documented in HPI. Neurologic symptoms: Negative except as documented in HPI. Psychiatric symptoms: Negative except as documented in HPI. Endocrine symptoms: Negative except as documented in HPI. [facility] ED PFSH: Medical History (Updated 05/24/25 @ 17:32 by Irma Stuart MD) Alcohol dependence No pertinent family history Surgical History No pertinent past surgical history Social History Smoking and tobacco/nicotine status: former use of tobacco/nicotine Alcohol intake: current Substance/Drug Use: never Physical Exam Narrative: EXAM NARRATIVE: General: Alert, patient is screaming out in pain after an IV was placed. Skin: Warm, dry. Head: Normocephalic, atraumatic. Neck: Supple, trachea midline. Eye: Extraocular movements are intact. Ears, nose, mouth and throat: mucosa moist. Cardiovascular: Regular, Normal peripheral perfusion. Respiratory: Lungs are clear to auscultation, respirations are non-labored, breath sounds are equal, Symmetrical chest wall expansion. Gastrointestinal: Soft, generalized lower abdominal tenderness to palpation with guarding, Non distended Musculoskeletal: Normal ROM, no deformity. Neurological: Alert and oriented, No focal neurological deficit observed. Psychiatric: Cooperative, appropriate mood & affect. Course Vital Signs: Vital signs: Vital Signs Temperature 97.3 F L 05/24/25 12:24 Pulse Rate 70 05/24/25 17:28 Respiratory Rate 18 05/24/25 12:24 Blood Pressure 123/70 05/24/25 17:28 Pulse Oximetry 100 05/24/25 17:28 Oxygen Delivery Me thod Room Air 05/24/25 12:24 MDM - Abdominal Pain Medical Decision Making Medical decision making: Patient's reason for coming to the emergency room: Abdominal pain Social determinants: Patient is self-employed. I reviewed the patient's medical record. Most recent visit was earlier this month for abdominal pain. He has a visit scheduled for tomorrow with general surgery. I reviewed the patient's current home meds Reviewed prescription monitoring program. In the last year his only prescription was 1 for hydrocodone for 14 tabs earlier this month after a visit for abdominal pain. Alternate historians: None Differential diagnosis for a patient who presents with lower abdominal pain including but not limited to and based on the above HPI, review of systems and physical exam: Diverticulitis. Constipation Ureterolithiasis. Urinary tract infection. colitis. small bowel obstruction. Crohn's flare. Orders placed to evaluate differential diagnosis based on the above differential, HPI and physical exam Lab Review: Laboratory results were reviewed and interpreted by myself the emergency room physician. Mild leukocytosis as compared to previous lab work. CRP is normal. Went ahead and ordered a CT given the level of the patient's symptoms and this mild increase in leukocytosis. Urinalysis is negative for infection. Liver enzymes are normal. Lipase is negative. CT of the abdomen pelvis with contrast: No acute process. This was reviewed and interpreted by myself the emergency room physician. I also reviewed the radiology report. Assessment of risk: - Level of risk mild to moderate - Was hospitalization considered? No Reexamination: Patient continues to ask for pain medication. I discussed with him that without any acute findings I cannot continue to give narcotics here. I will give him some Ultram for home for now. Assessment and plan: Abdominal pain ?IV Dilaudid. IV Tylenol. IV Zofran. - Discharged home - Discussed plan with patient. Answered any questions. - Evaluation and treatment of this problem were appropriate in the emergency setting. Lab Data 05/24/25 12:53 05/24/25 12:53 Labs/Radiology: Radiology Impressions Abdomen/Pelvis CT 05/24/25 15:32 IMPRESSION: No acute findings. Laboratory Results WBC 11.65 10^3/uL (3.29-11.43) H 05/24/25 12:53 RBC 5.53 10^6/uL (3.85-5.65) 05/24/25 12:53 Hgb 16.30 g/dL (11.27-16.99) 05/24/25 12:53 Hct 48.8 % (37-53) 05/24/25 12:53 MCV 88.2 fl (82-101) 05/24/25 12:53 MCH 29.5 pg (27-33) 05/24/25 12:53 MCHC 33.4 g/dL (30-55) 05/24/25 12:53 RDW 12.9 % (12.1-15.1) 05/24/25 12:53 Plt Count 223 10^3/cmm (157-399) 05/24/25 12:53 MPV 11.3 fL (7.4-10.4) H 05/24/25 12:53 Neut % (Auto) 89.5 % 05/24/25 12:53 Lymph % (Auto) 6.3 % 05/24/25 12:53 [place] % (Auto) 3.2 % 05/24/25 12:53 Eos % (Auto) 0.5 % 05/24/25 12:53 Baso % (Auto) 0.3 % 05/24/25 12:53 Neut # (Auto) 10.44 10^3/uL (1.8-7.7) H 05/24/25 12:53 Lymph # (Auto) 0.7 10^3/uL (0.8-4.8) L 05/24/25 12:53 [place] # (Auto) 0.4 10^3/uL (0.2-0.9) 05/24/25 12:53 Eos # (Auto) 0.1 10^3/uL (0.0-0.8) 05/24/25 12:53 Baso # (Auto) 0.0 10^3/uL (0.0-0.1) 05/24/25 12:53 Nucleated RBC % (auto) 0 % 05/24/25 12:53 Nucleated RBCs # 0.0 /100WBC 05/24/25 12:53 Sodium 140 mmol/L (136-145) 05/24/25 12:53 Potassium 4.8 mmol/L (3.5-5.1) 05/24/25 12:53 Chloride 102 mmol/L (98-107) 05/24/25 12:53 Carbon Dioxide 22 mmol/L (22-29) 05/24/25 12:53 Anion Gap 20.8 (5-19) H 05/24/25 12:53 BUN 9 mg/dL (6-20) 05/24/25 12:53 Creatinine 1.0 mg/dL (0.7-1.2) 05/24/25 12:53 GFR Calculation 81.9 mL/min (90-130) L 05/24/25 12:53 Glucose 96 mg/dL (65-115) 05/24/25 12:53 Calculated Osmolality 289 mOsm/kg (285-295) 05/24/25 12:53 Lactic Acid 1.4 mmol/L (0.5-2.2) 05/24/25 12:53 Calcium 9.5 mg/dL (8.5-10.5) 05/24/25 12:53 Total Bilirubin 0.5 mg/dL (0.15-1.2) 05/24/25 12:53 AST 18 U/L (0-40) 05/24/25 12:53 ALT 17 U/L (0-41) 05/24/25 12:53 Alkaline Phosphatase 88 U/L (40-130) 05/24/25 12:53 C-Reactive Protein 3.0 mg/L (0.0-4.9) 05/24/25 12:53 Total Protein 7.2 g/dL (6.6-8.7) 05/24/25 12:53 Albumin 4.9 g/dL (3.5-5.2) 05/24/25 12:53 Globulin 2.3 g/dL (1.3-4.6) 05/24/25 12:53 Lipase 21 U/L (13-60) 05/24/25 12:53 Urine Color Yellow (Yellow) 05/24/25 14:16 Urine Appearance Cloudy (CLEAR) A 05/24/25 14:16 Urine pH 7.5 (5-7) 05/24/25 14:16 Ur Specific Pillow 1.025 (1.005-1.030) 05/24/25 14:16 Urine Protein 1+ (Negative) A 05/24/25 14:16 Urine Glucose (UA) Negative (Normal) 05/24/25 14:16 Urine Ketones 1+ (Negative) H 05/24/25 14:16 Urine Blood Negative (Negative) 05/24/25 14:16 Urine Nitrate Negative (Negative) 05/24/25 14:16 Urine Bilirubin Negative (Negative) 05/24/25 14:16 Urine Urobilinogen 1.0 mg/dL (Negative) 05/24/25 14:16 Ur Leukocyte Esterase Negative (Negative) 05/24/25 14:16 Urine RBC 0-2 /hpf (0-2) 05/24/25 14:16 Urine WBC 0-5 /hpf (0-5) 05/24/25 14:16 Ur Squamous Epith Cells 0-5 /hpf (0-5) 05/24/25 14:16 Amorphous Sediment Not Reportable 05/24/25 14:16 Urine Bacteria None seen /hpf (NONE) 05/24/25 14:16 Hyaline Casts 1.21 /lpf 05/24/25 14:16 All radiology interpretation(s) finalized by discharge Discharge Plan Discharge Patient Disposition: Home Clinical Impression: Abdominal pain Condition: Stable Prescriptions: New tramadol 50 mg tablet 50 mg PO Q8H PRN (Reason: pain) Qty: 10 0RF No Action acetaminophen [Tylenol Ex Str Rapid Release] 500 mg Tablet 1,000 mg PO Q6H PRN (Reason: Pain) diphenhydramine HCl [Benadryl Allergy] 25 mg Tablet 25 mg PO TID PRN (Reason: Itching) simethicone [Gas-X] 80 mg Tablet,Chewable 160 mg PO DAILY PRN (Reason: Gastrointestinal Spasms Or Cramping) hydrocodone-acetaminophen 5-325 mg tablet 1 tab PO Q6H PRN (Reason: pain) Qty: 14 0RF ondansetron 4 mg tablet,disintegrating 4 mg PO Q6H PRN (Reason: nausea and vomiting) Qty: 14 0RF dicyclomine 20 mg tablet 20 mg PO TID PRN (Reason: abdominal pain) Qty: 20 0RF pantoprazole [Protonix] 40 mg tablet,delayed release (DR/EC) 40 mg PO DAILY Qty: 60 0RF Discharge Orders: Discharge ED (Routine); Ordered 05/24/25 Ordered By: Irma Stuart Referrals: Juliet Hart APN [Primary Care Provider, Family Practice] Discharge Diet: Advance as tolerated Discharge Activity: Increase activity as tolerated Patient Instructions: Abdominal Pain (ED), Opioid Safety, Pain Management, Patient Portal & Shin Instructions Activity Restrictions/Additional Instructions: Please keep follow-up with the surgeon that you have for tomorrow. Thank you for choosing [facility] for your healthcare needs today. You have been screened and evaluated and felt safe for discharge. Health conditions do change or evolve sometimes and as such it is important that you follow up with your Primary Doctor to be re checked, 3-5 days is a general good time frame for follow up. You are always welcome to return to the ED for re assessment if your symptoms are worsening or you have new concerns Print Language: Slovak Coding Level of Care Code ED Tar Processing Technician for Jennifer Watson
[2025-05-24] MEDS: ondansetron 2 mg/ML SDV 2 mL 4 MG IVP (13:18)
[2025-05-24] MEDS: HYDROmorphone 0.5 MG/0.5 ML INJ 1 MG IVP (13:19)
[2025-05-24 13:43] LABS: Hematocrit 48.8 % (37-53); Hemoglobin 16.30 g/dL (11.27-16.99); Mean Corpuscular HGB Conc 33.4 g/dL (30-55); Mean Corpuscular Hemoglobin 29.5 pg (27-33); Mean Corpuscular Volume 88.2 fl (82-101); Nucleated Red Blood Cells % 0 %; Platelet Count 223 10^3/cmm (157-399); Red Blood Count 5.53 10^6/uL (3.85-5.65); White Blood Count 11.65 10^3/uL (3.29-11.43)
[2025-05-24 14:03] LABS: Lactic Sepsis W/Reflex 1.4 mmol/L (0.5-2.2)
[2025-05-24 14:04] LABS: Alanine Aminotransferase 17 U/L (0-41); Albumin Level 4.9 g/dL (3.5-5.2); Alkaline Phosphatase 88 U/L (40-130); Blood Urea Nitrogen 9 mg/dL (6-20); Calcium 9.5 mg/dL (8.5-10.5); Carbon Dioxide 22 mmol/L (22-29); Chloride 102 mmol/L (98-107); Creatinine Clr Calc Pharmacy 102.0479; Globulin 2.3 g/dL (1.3-4.6); Glucose 96 mg/dL (65-115); Lipase 21 U/L (13-60); Osmolality Calculated 289 mOsm/kg (285-295); Sodium 140 mmol/L (136-145); Total Protein 7.2 g/dL (6.6-8.7)
[2025-05-24 14:09] LABS: Anion Gap 20.8 (5-19); Aspartate Amino Transferase 18 U/L (0-40); Potassium 4.8 mmol/L (3.5-5.1)
[2025-05-24 14:26] VITALS: BP 140/70; PULSE 90; O2SAT 99
[2025-05-24 14:33] LABS: Glucose Urine UA Negative (Normal); Nitrate Urine Negative (Negative); Specific Gravity, Urine 1.025 (1.005-1.030)
[2025-05-24 14:38] LABS: Add Urine Microscopic? YES
[2025-05-24] MEDS: LORazepam 2 mg/mL INJ 1 mL 1 MG IVP (14:59)
[2025-05-24] MEDS: acetaminophen 1,000 MG/100 ML PIGGYBACK 400 MG IV (14:59)
[2025-05-24 15:30] VITALS: BP 119/75; PULSE 90; O2SAT 100
--- NOTE | 2025-05-24 15:32 | CTR_ITS ---
PROCEDURE INFORMATION: Exam: CT Abdomen And Pelvis With Contrast Exam date and time: 05/24/2025 4:27 PM Age: 44 years old Clinical indication: Abdominal pain; Generalized TECHNIQUE: Imaging protocol: Computed tomography of the abdomen and pelvis with contrast. Radiation optimization: All CT scans at this facility use at least one of these dose optimization techniques: automated exposure control; mA and/or kV adjustment per patient size (includes targeted exams where dose is matched to clinical indication); or iterative reconstruction. Contrast material: OMNIPAQUE 350; Contrast volume: 100 ml; Contrast route: INTRAVENOUS (IV); COMPARISON: CT abdomen pelvis w con* [id number] 04/29/2025 4:22 PM RADIATION DOSE METRICS: Total DLP (mGy-cm): 289.13 FINDINGS: Liver: Unremarkable. Gallbladder and biliary ducts: No calcified stones. No ductal dilation. Pancreas: No ductal dilation. Spleen: No splenomegaly. Adrenal glands: Normal. No mass. Kidneys and ureters: No hydronephrosis. Stomach and bowel: No obstruction. No mucosal thickening. Appendix: The appendix is not identified. There are no focal inflammatory changes in the right lower quadrant. Intraperitoneal space: No free air. No significant fluid collection. Vasculature: No abdominal aortic aneurysm. Lymph nodes: No enlarged lymph nodes. Urinary bladder: Unremarkable as visualized. Reproductive: Prostate gland is enlarged. Bones/joints: Unremarkable. No acute fracture. Soft tissues: Unremarkable. CT/CT abdomen pelvis w con* [id number] IMPRESSION: No acute findings.
[2025-05-24 16:00] VITALS: BP 125/77; PULSE 90; O2SAT 99
[2025-05-24 17:28] VITALS: BP 123/70; PULSE 70; O2SAT 100
== END 2025-05-24 17:47 | disposition home or self-care (01) ==
PROVIDERS: Family Medicine; Emergency Provider Emergency Medicine; PCP Nurse Practitioner Family
DX: R10.9 Unspecified abdominal pain (principal); Z87.891 Personal history of nicotine dependence
CPT/HCPCS: 36415; 74177; 80053; 81001; 83605; 83690; 85025; 86140; 87040; 96374; 96375; 99285; J0131; J1171; J2060; J2405; J7030

== ENCOUNTER → 2025-07-01 11:09 | Outpatient (BNVA) | payer SELFPAY | PROVIDERS: PCP Nurse Practitioner Family; Visit Provider Family Medicine | DX: Z13.6 Encounter for screening for cardiovascular disorders (principal); R10.9 Unspecified abdominal pain; G89.29 Other chronic pain | CPT/HCPCS: 80053; 82784; 82785; 83516; 85025; 86001; 86003; 86008 ==